=== PATIENT | female | born 1960 | race Caucasian/White ===

== ENCOUNTER 2016-07-12 14:38 | Emergency (ER) | payer OTHER ==
[2016-07-12] MEDS ORDERED: LORAZEPAM 1 MG TABLET ONE ×2 (15:23→16:02)
== END 2016-07-12 16:05 | disposition home or self-care (01) ==
LOC: ED 14:38
DX: F41.9 Anxiety disorder, unspecified (principal); F17.210 Nicotine dependence, cigarettes, uncomplicated
CPT/HCPCS: 99283 ×2; A9270 ×2

== ENCOUNTER 2016-09-21 19:20 | Inpatient (IN) | payer OTHER ==
[2016-09-21] MEDS ORDERED: IOPAMIDOL 370 (76%) 100 ML VIAL IV ONE (19:21)
[2016-09-21] MEDS ORDERED: ASPIRIN CHEWTAB 81 MG TABLET ONE (20:47)
[2016-09-21] MEDS ORDERED: SODIUM CHLORIDE 0.9% 1,000 ML ONE ×2 (20:47→21:43)
[2016-09-21] MEDS ORDERED: ACETAMINOPHEN 500 MG TABLET ONE (20:47)
[2016-09-21] MEDS ORDERED: ONDANSETRON 4 MG/2ML 2 ML VIAL ONE (20:47)
[2016-09-21 21:08] LABS: ABSOLUTE NEUTROPHIL COUNT 7.3 K/mm3 (1.8-7.7); BASO # 0.1 K/mm3 (0.0-0.2); BASO % 0.7 % (0.2-1.0); EOS # 0.1 (0.0-0.5); EOS % 0.7 % (0.9-2.9); HEMATOCRIT 39.1 % (37.0-47.0); HEMOGLOBIN 13.4 gm/l (12.0-16.0); IMM NEUT # 0.3 K/mm3 (0-0.2); IMM NEUT% 2.5 % (0-1); LYMPH # 2.5 (1.0-4.8); LYMPH % 22.3 % (15-45); MEAN CELL VOLUME 88.7 fl (81.0-99.0); MEAN CORPUSCULAR HEMOGLOBIN 30.4 pg (27.0-31.0); MEAN CORPUSCULAR HGB CONC 34.3 g/dl (33.0-37.0); MEAN PLATELET VOLUME 9.7 fl (7.4-10.4); MONO # 0.8 (0.0-0.8); MONO % 7.2 % (4-12); NEUT % 66.6 % (43-75); PLATELET COUNT 486 K/mm3 (130-400)
[2016-09-21 21:28] LABS: ALB/GLOB RATIO 0.9 (>1.0); ALBUMIN 3.9 gm/dL (3.5-5.7); CALCIUM 9.9 mg/dL (8.6-10.3); MAGNESIUM 1.5 mg/dL (1.9-2.7)
[2016-09-21 21:34] LABS: TROPONIN I < 0.01 ng/ml (0.0-0.06)
[2016-09-21 21:38] LABS: CKMB ISOENZYME 4.9 ng/ml (0.6-6.3)
[2016-09-21] MEDS ORDERED: POTASSIUM CHLORIDE 20 MEQ TAB.PRT.SR ONE (21:40)
[2016-09-21 21:44] LABS: THYROID STIMULATING HORMONE 4.02 uIU/ml (0.34-5.60)
[2016-09-21] MEDS ORDERED: LEVOFLOXACIN 750 MG/D5W 150 ML 150 ML IV ONE (22:54)
[2016-09-21] MEDS ORDERED: MORPHINE SULFATE 4 MG/ML SYRINGE ONE (22:55)
[2016-09-21] MEDS ORDERED: CODEINE/PROMETHAZINE 6.25mg/10mg/5ml SYRUP DOSE ONE (23:23)
[2016-09-21 23:57] LABS: URINE BILIRUBIN NEGATIVE (NEGATIVE); URINE BLOOD NEGATIVE (NEGATIVE); URINE GLUCOSE (UA) NEGATIVE (NEGATIVE); URINE LEUKOCYTE ESTERASE NEGATIVE (NEGATIVE); URINE NITRITE NEGATIVE (NEGATIVE); URINE PROTEIN NEGATIVE (NEGATIVE); URINE UROBILINOGEN NORMAL (0-1 mg/dl)
[2016-09-21 23:58] LABS: URINE APPEARANCE CLEAR; URINE COLOR YELLOW
[2016-09-22] MEDS ORDERED: SODIUM CHLORIDE 0.9% FLUSH 10 ML ONE (00:10)
[2016-09-22] MEDS ORDERED: MAGNESIUM HYDROXIDE 30 ML UDCUP PO PRN (00:31)
[2016-09-22] MEDS ORDERED: BISACODYL 10 MG SUP PR PRN (00:31)
[2016-09-22] MEDS ORDERED: MAGNESIUM SULFATE 2 G/50 ML 2 G in Premix (Water) 50 ml 1 EACH IV ONE (00:31)
[2016-09-22] MEDS ORDERED: ALBUTEROL NEB 2.5 MG/3 ML VIAL.NEB NEB PRN (00:31)
[2016-09-22] MEDS ORDERED: BISACODYL 5 MG TABLET.EC PO PRN (00:31)
[2016-09-22] MEDS ORDERED: ACETAMINOPHEN 325 MG TABLET PO PRN (00:31)
[2016-09-22] MEDS ORDERED: SODIUM CHLORIDE 0.9% 100 ML IV PRN (00:31)
[2016-09-22] MEDS ORDERED: BLISTEX LIPSTICK 1 EACH TP PRN (00:31)
[2016-09-22] MEDS ORDERED: TRAZODONE HCL 150 MG PO PRN (00:38)
[2016-09-22] MEDS ORDERED: HYDROCODONE/ACETAMINOPHEN 5/325MG TABLET PO PRN (00:41)
[2016-09-22] MEDS ORDERED: PUMP TUBING ONE ×2 (01:25→21:28)
[2016-09-22] MEDS: CLONAZEPAM 0.5 MG TABLET PO PRN ×3 (01:37→21:37)
[2016-09-22] MEDS: TRAZODONE HCL 50 MG TABLET PO PRN ×2 (01:37→21:37)
[2016-09-22] MEDS: SODIUM CHLOR 0.9% w 40mEq KCL 1,000 ML IV SCH ×2 (01:38→19:08)
[2016-09-22] MEDS: MAGNESIUM SULFATE 1 G/100 ML 100 ML IV SCH ×2 (01:43→02:52)
[2016-09-22] MEDS: HYDROCODONE/ACETAMINOPHEN 5/325MG TABLET PO PRN ×6 (01:55→23:18)
[2016-09-22 04:42] VITALS: BMI 31.3
[2016-09-22] MEDS: LEVOTHYROXINE SODIUM 100 MCG TABLET PO SCH (05:29)
[2016-09-22] MEDS: MENTHOL/CETYLPYRD 1 EACH LOZENGE PO PRN ×2 (05:30→09:00)
[2016-09-22 06:06] LABS: CALCIUM 8.4 mg/dL (8.6-10.3); MAGNESIUM 2.3 mg/dL (1.9-2.7)
[2016-09-22] MEDS: ALBUTEROL/IPRATROPIUM 2.5/0.5 MG 3 ML/EACH DOSE NEB SCH ×5 (07:27→20:31)
--- NOTE | 2016-09-22 08:07 | CT ---
CHEST CTA HISTORY: Cough and chest pain, elevated d-dimer. TECHNIQUE: Following the administration of 80 mL Isovue-370 intravenous contrast, contiguous axial images were acquired from the thoracic inlet to the diaphragmatic hiatus for CT pulmonary angiography. Three-dimensional reformatted images were not performed. FINDINGS: PULMONARY ARTERIAL TREE: Technically adequate enhancement: No dominant filling defects. THORACIC AORTA: Mild ascending aortic ectasia, up to 3.6 cm in width. No dissection flap.. LUNGS: Multifocal groundglass attenuation and airspace abnormality with upper lobe predominance. No pleural effusion or pneumothorax. Moderate bronchial wall thickening. More focal atelectatic change at the lingula. RAY AND MEDIASTINUM: Mild prominence of multiple lymph nodes, including a 2.0 x 1.2 cm right hilar lymph node, 2.0 51.3 cm left hilar lymph node, 1.6 x 1.0 cm precarinal lymph node. AXILLAE: No grossly enlarged lymph nodes. UPPER ABDOMEN: No gross mass effect. Postcholecystectomy change. OSSEOUS STRUCTURES: Minor thoracic disc degeneration. MAMMARY SOFT TISSUES: Soft tissue nodule measuring 1.6 cm in size at the right lateral aspect, mammographic correlation is recommended. IMPRESSION: 1. No CTA evidence of proximal order pulmonary embolus. 2. Bilateral airspace abnormalities of mild to moderate extent, worrisome for multifocal pneumonia. Probable reactive hilar and mediastinal adenopathy. Moderate associated bronchial wall thickening. 3. 1.6 cm nodule of the right mammary soft tissues, recommend mammographic correlation. 4. Postcholecystectomy change. Preliminary report relayed to the Emergency Medicine medical service by Dr. Villa on 09/21/2016 at 2211 hours.
[2016-09-22] MEDS: DOCUSATE SODIUM 100 MG CAPSULE PO SCH ×2 (08:51→21:24)
[2016-09-22] MEDS: BUSPIRONE HCL 5 MG TABLET PO SCH ×2 (08:51→21:23)
[2016-09-22] MEDS: PANTOPRAZOLE 40 MG TABLET DR PO SCH (08:51)
[2016-09-22] MEDS: PAROXETINE 20 MG TABLET PO SCH (08:52)
[2016-09-22] MEDS: DIPHENHYDRAMINE HCL 25 MG CAPSULE PO PRN ×3 (09:00→23:18)
--- NOTE | 2016-09-22 09:02 | HP ---
Ivory Starkey [id number] DATE OF ADMISSION: 09/21/2016 CHIEF COMPLAINT: Cough and chest pain. HISTORY OF PRESENT ILLNESS: The patient is a 56-year-old female whose has persistent cough since the beginning of September. She was first seen by her primary care provider on September 14. Chest x-ray did not show an infiltrate. She was seen two days later at [facility] and was diagnosed with pneumonia and given Z-Roe and doxycycline. The patient took the medications and is still finishing up her doxycycline, but has not had any improvement and presented to the emergency department today with complaints of persistent nonproductive coughing and malaise with some lower chest wall pain worse with deep breathing or with coughing. The patient was evaluated with a CT. REVIEW OF SYSTEMS: Negative for any fevers or chills. She has had no nasal congestion or ear pain. She has had persistent coughing with dyspnea and some wheezing. She has had no production to the cough. She denies any edema or palpitations. She has had chest pain with coughing. She has had some nausea initially, but not recently and no vomiting, but has the profound lack of appetite. She initially did have some diarrhea symptoms, but this has resolved. She has had some upper abdominal pain associated with coughing and deep breathing. She denies any new arthralgia's, headaches, fainting, blackouts, or seizures. She denies any urinary complaints. PAST MEDICALHISTORY: Significant for depression with anxiety. She also has chronic essential hypertension, hypothyroidism, and gastroesophageal reflux disease. She also has had some osteoarthritis and hypothyroidism as well as hypercholesterolemia. She denies any recent hospitalizations except for orthopedic surgery. PAST SURGICAL HISTORY: Significant for a left total knee arthroplasty in 2013. She has had a prior laparoscopic cholecystectomy in 2003, a hysterectomy in 2001, several bladder tuck procedures, and several breast biopsies which were benign. In March 2016 she had an upper endoscopy which was negative. ALLERGIES: SHE HAS AN ALLERGY TO BACTRIM AND TORADOL. CURRENT MEDICATIONS: Consist of: 1. Albuterol HFA inhaler 1 to 2 puffs every four hours as needed for wheezing. 2. Estradiol 0.05% mg per 24 hour patch applied every week. 3. Doxycycline 100 mg twice daily. 4. Clonazepam 0.5 mg twice daily as needed for anxiety. 5. Buspirone 7.5 mg twice a day. 6. Trazodone 150 mg at bedtime as needed for sleep. 7. Zocor 20 mg in the evening. 8. Paroxetine 20 mg daily. 9. Zestoretic 10/12.5 mg one daily. 10. Levothroid 100 mcg daily. FAMILY HISTORY: Significant for mother who of a stroke. SOCIAL HISTORY: She lives with her boyfriend and is I believe. She works at [employer]. She drinks alcohol socially. She has a history of smoking about a pack per day for the last 25 years. She denies any illicit drug use and does use marijuana occasionally. Her primary care provider is LORNA Loza. PHYSICAL EXAMINATION: VITALS: Temperature is 98.4, pulse 90, blood pressure 98/61, respirations 16, oxygen saturation 92% on room air. Body mass index has not yet been calculated. GENERAL: This is a slightly obese female in mild respiratory distress. HEENT: Moist pink oral mucosa. No lesions. NECK: Supple without lymphadenopathy or thyromegaly. LUNGS: Reveal bibasilar rhonchi. CARDIOVASCULAR: Reveals a regular rate and rhythm without a murmur. ABDOMEN: Soft, nontender, nondistended with positive bowel sounds. There is some discomfort along the lower rib margin bilaterally. GENITOURINARY: Deferred. RECTAL: Deferred. EXTREMITIES: No peripheral edema. NEUROLOGIC: Nonfocal. DIAGNOSTIC IMAGING STUDIES: Included a CTA of the chest showing bilateral infiltrates and hilar and mediastinal adenopathy, possible breast mass, await the final report. LABORATORY: Her CBC showed a white count elevated at 11.0, hemoglobin was 13.4, platelet count is 486,000. D-dimer was elevated at 0.70, lactate was normal at 1.4. Chemistry profile was notable for sodium low at 133, potassium low at 3.1, BUN 24, creatinine elevated at 1.4, magnesium was low at 1.5. Liver function tests were normal. TSH was normal. Urinalysis showed unremarkable findings. ASSESSMENT: The patient has bacterial pneumonia which has failed outpatient treatment with Zithromax and doxycycline. She has evidence of acute kidney injury probably due to dehydration and lack of oral intake. I do not think she has severe sepsis, but possibly mild early sepsis. She does have hypokalemia and hypomagnesemia and these will be replaced. Chronic essential hypertension by history, but blood pressure currently on the low side due to dehydration most likely, and hypothyroidism stable on medications, depression with anxiety stable on medications. She is placed initially under observation on the med/surg unit. We will review her response and consider transition to full inpatient care or discharge if she is having dramatic improvement. I anticipate she will likely stay for over 48 hours and anticipate changing her status to inpatient status in the next 24 hours. She will be given albuterol and DuoNebs and treated with Levaquin. We will consider prednisone therapy if she is not improving. Consider immunization for pneumonia. Venous thromboembolic risk at this point is low. If she does stay over 48 hours would be moderate and prophylaxis with Lovenox will likely be prescribed in that incidence. Further treatment and recommendations will depend on her hospital course. JOB: [id number] CC: LORNA Loza
--- NOTE | 2016-09-22 11:26 | PDOC43 ---
- Subjective Chief Complaint: Diffuse muscle aches, nonproductive cough, fatigue Subjective: Reports Tolerating Diet Well, Reports Urinating Without Difficulty, Reports Cough, Reports Chest Pain (with cough, right rib cage), Reports Abdominal Pain (with coughing), Denies Bowel Movement (no diarrhea), Denies Fever, Denies Chills - Objective Vital Signs Temperature 98.5 F 09/22/16 07:16 Pulse Rate 76 09/22/16 07:28 Respiratory Rate 18 09/22/16 07:28 Blood Pressure 104/63 09/22/16 07:16 O2 Saturation by Pulse Oximetry 97 09/22/16 07:28 Oxygen Delivery Method Nasal Cannula Oxygen Flow Rate 2 Intake and Output 09/20/16 09/21/16 09/22/16 23:59 23:59 23:59 Intake Total 783 Output Total 300 Balance 483 General: Alert, Oriented x3, Cooperative, No Acute Distress HEENT: Atraumatic, PERRLA, EOMI, Mucous membr. moist/pink Lungs: Other (scattered expiratory wheezes, left more diffuse than right) Cardiovascular: Regular Rate and Rhythm, Normal S1, Normal S2, No Murmur Abdomen: Soft, Tenderness (mild diffuse), Normal Bowel Sounds, Non-Distended Extremities: Normal Pulses, No Edema, No Tenderness Skin: Normal Color, No Rash Psych/Mental Status: Depressed, Flat Affect Bilateral breasts examined, no palpable masses or skin thickening. Left nipple with slight inversion and scar consistent with surgical history of prior cyst biopsy Bilaterally: No axillary, supraclavicular or cervical adenopathy Laboratory 09/22/16 05:15 09/22/16 05:15 Calcium 8.4 L Current Medications: Current meds reviewed in EMR. - Problems: Assessment/Plan (1) Acute bronchitis Status: AcuteAssessment/Plan: Symptoms began with GI diarrhea and nausea as well as nonproductive cough on 09/12. GI symptoms resolved but cough remains primary complaint as well as fatigue, diffuse muscle aches and weakness. Denies any prior PFT's or COPD, any prior hospital stay for breathing troubles or oxygen use. Has not smoked since 09/14 due to illness. Continue supportive care with prn O2, nebs. Add inhaled corticosteroid for suspected viral cough and short burst PO steroids to hopefully speed recovery. Educated on post viral cough expected duration. Add more aggressive cough management with dextromethoraphan (2) Cough due to bronchospasm Status: AcuteAssessment/Plan: Add inh steroid, cough suppressant (3) Essential hypertension, benign Status: ChronicAssessment/Plan: Normally on outpatient antihypertensive. Currently holding for relative HOTN on admission. Will restart if BP consistently above 120/80 and renal function stable (4) Hypotension arterial Qualifiers: Hypotension type: unspecified hypotension type Qualifier Code: (I95.9) Hypotension, unspecified Status: AcuteAssessment/Plan: NO other sepsis symptoms, stable, asymptomatic. Monitor (5) Myalgia and myositis Status: AcuteAssessment/Plan: CK elevated on admit. Status post IVF's. Diffuse myalgias likely viral, complicated by musculoskeletal pain from coughing effort (6) Tobacco abuse Status: ChronicAssessment/Plan: Counseled on cessation. (7) Hypokalemia due to inadequate potassium intake Status: ResolvedAssessment/Plan: resolved with initial repletion, will recheck in AM and replete prn (8) Hypomagnesemia Status: ResolvedAssessment/Plan: Resolved with repletion, reassess on am labs and replete prn (9) Abnormal finding on breast imaging Status: AcuteAssessment/Plan: Breast exam without discreet mass. Mammogram out of date. Will need outpatient mammography (10) Abnormal CT scan, lung Status: AcuteAssessment/Plan: Thoracic lymphadenopathy, most likely reactive, will need fu imaging in 6-12 weeks as an outpatient to ensure resolution.
[2016-09-22] MEDS ORDERED: PREDNISONE 20 MG TABLET PO SCH (11:30)
[2016-09-22] MEDS: FLUTICASONE PROP 220 MCG 120 PUFF/INH INHALER IH SCH ×2 (19:08→21:24)
[2016-09-22] MEDS: PREDNISONE 10 MG TABLET PO SCH (19:21)
[2016-09-22] MEDS: ENOXAPARIN SODIUM 40 MG/0.4 ML SYRINGE SUB-Q SCH (19:21)
[2016-09-22] MEDS ORDERED: SIMVASTATIN 10 MG TABLET PO SCH (20:00)
[2016-09-22] MEDS: GUAIFENESIN-DEXTROMETHORPHAN 100/10 MG/5 ML (120 ML BOT) PO PRN (21:32)
[2016-09-22] MEDS ORDERED: LEVOFLOXACIN 750 MG/D5W 150 ML 750 MG in Premix (D5W) 150 ml Bag 1 EACH IV SCH (22:00)
[2016-09-23] MEDS: HYDROCODONE/ACETAMINOPHEN 5/325MG TABLET PO PRN (06:12)
[2016-09-23] MEDS: DIPHENHYDRAMINE HCL 25 MG CAPSULE PO PRN (06:12)
[2016-09-23] MEDS: LEVOTHYROXINE SODIUM 100 MCG TABLET PO SCH (06:13)
[2016-09-23] MEDS: GUAIFENESIN-DEXTROMETHORPHAN 100/10 MG/5 ML (120 ML BOT) PO PRN (07:52)
[2016-09-23] MEDS: PREDNISONE 10 MG TABLET PO SCH (08:09)
[2016-09-23] MEDS: PANTOPRAZOLE 40 MG TABLET DR PO SCH (08:11)
[2016-09-23] MEDS: PAROXETINE 20 MG TABLET PO SCH (08:11)
[2016-09-23] MEDS: DOCUSATE SODIUM 100 MG CAPSULE PO SCH (08:11)
[2016-09-23] MEDS: BUSPIRONE HCL 5 MG TABLET PO SCH (08:11)
[2016-09-23] MEDS: FLUTICASONE PROP 220 MCG 120 PUFF/INH INHALER IH SCH (08:14)
[2016-09-23] MEDS: ALBUTEROL/IPRATROPIUM 2.5/0.5 MG 3 ML/EACH DOSE NEB SCH (08:45)
[2016-09-23] MEDS ORDERED: ESTRADIOL TD SCH (09:00)
[2016-09-23 09:30] VITALS: BP 115/64
[2016-09-23] MEDS: ENOXAPARIN SODIUM 40 MG/0.4 ML SYRINGE SUB-Q SCH (11:20)
[2016-09-23] MEDS: CLONAZEPAM 0.5 MG TABLET PO PRN (11:51)
--- NOTE | 2016-09-24 20:11 | DS ---
DERRELL BHAT [id number] DATE OF ADMISSION: 09/21/2016 DATE OF DISCHARGE: 09/23/2016 DISCHARGE DIAGNOSIS: Bilateral bacterial pneumonia, organism unspecified. OTHER DIAGNOSES: Include: 1. Acute kidney injury and hypokalemia felt to be secondary to dehydration. 2. Hypomagnesemia, also secondary to dehydration. 3. Also, possible neoplasm involving the right breast. Mammographic correlation is recommended. 4. Chronic essential hypertension. 5. Hypothyroidism. 6. Chronic depression with anxiety, stable. 7. Acute bronchitis. SUMMARY OF ADMISSION AND HOSPITAL COURSE: The patient is a 56-year-old female who presented with complaints of persistent cough despite outpatient treatment with 2 different antibiotics. She was evaluated in the emergency department and found to have elevated white blood cell count at 11,000. Normal lactate. She did have a creatinine elevated at 1.4, potassium decreased at 3.1, and magnesium decreased at 1.5. Because of the bilateral nature of her pneumonia, and failure to outpatient treatment, she was admitted to the Hospitalist service. She was hydrated, given potassium and magnesium replacement. She held her blood pressure medications due to the dehydration, and was treated with Levaquin, and had gradual improvement. Prednisone was added on 09/22/2016, and by 09/23/2016 the patient was felt to be medically stable for discharge. PHYSICAL EXAM: VITAL SIGNS: Her vitals at discharge showed a temperature of 97.8, pulse 84, blood pressure 115/64, respirations 16, oxygen saturation is 95% on room air. Body mass index is 31.4. Weight is 96.4 kg. GENERAL: This is a slightly obese female in no acute distress. HEENT: Unremarkable. NECK: Supple without lymphadenopathy, or thyromegaly. LUNGS: Clear to auscultation bilaterally. CARDIOVASCULAR: Exam reveals a regular rate and rhythm without a murmur. ABDOMEN: Soft, nontender, nondistended with positive bowel sounds. EXTREMITIES: Show no peripheral edema. ALLERGIES: DOCUMENTED TO TORADOL, AND SULFA MEDICATION. DISCHARGE INSTRUCTIONS: Patient was encouraged in her efforts to quit smoking which she has done for the past 11 days. The patient was given a work release from work from 09/21/2016 through 09/27/2016 with a return to work date of 09/28/2016. DISCHARGE MEDICATIONS: Will include: 1. Flovent 220 mcg inhaler 1 puff inhaled twice daily until finished. 2. She will like take [place] 5/325 one every 4 hours as needed for wheezing. 3. Levaquin 750 mg daily for 5 days. 4. Prednisone 40 mg daily for 2 days, followed by 20 mg daily for 3 days, and 10 mg daily for 4 days. She will resume her other medications except Zestoretic 03/22.5 daily will be held for one week, and then she will resume as before. I also recommend she cut her trazodone in half. She will reduce the dose to 75 mg at bedtime as needed for sleep for the next week, and then she can go back up to her usual dose of 150 mg daily at bedtime as needed for sleep. She is going to continue: 1. Levothroid 100 mcg daily. 2. Prilosec 20 mg daily. 3. Paroxetine 20 mg daily. 4. Zocor 20 mg at bedtime. 5. BuSpar 7.5 mg twice daily. 6. Klonopin 0.5 mg twice daily as needed for anxiety. 7. Estradiol patch 0.05 mg per 24 hours applied every week. 8. Albuterol HFA inhaler 1 to 2 puffs every 4 hours as needed for wheezing. DISCHARGE FOLLOW UP: Follow up has been scheduled with Rakel Dick on 09/26/2016 at 10:15 a.m. I would recommend that she talk to Rakel Dick about scheduling a mammogram. DISCHARGE CONDITION: Good. CAROL/joie Cc: LORNA [place]ri[place]
== END 2016-09-23 12:30 | disposition home or self-care (01) | DRG 194 ==
LOC: ED 19:20 → MS 22:59 → OBSVTOIN 09-22 11:04
PROVIDERS: ADMIT Family Medicine; ATTEND Family Medicine
DX: J15.9 Unspecified bacterial pneumonia (principal); N17.9 Acute kidney failure, unspecified; E87.6 Hypokalemia; E83.42 Hypomagnesemia; N63 Unspecified lump in breast; I10 Essential (primary) hypertension; E03.9 Hypothyroidism, unspecified; F32.9 Major depressive disorder, single episode, unspecified; F41.9 Anxiety disorder, unspecified; J20.9 Acute bronchitis, unspecified; F17.210 Nicotine dependence, cigarettes, uncomplicated; I95.9 Hypotension, unspecified; M79.1 Myalgia